=== PATIENT | female | born 1960 | race Two or more races ===

== ENCOUNTER 2022-03-02 13:57 | Inpatient (IN) | payer OTHER, SELFPAY ==
[2022-03-02] MEDS ORDERED: Ondansetron ODT 4 MG TAB PO PRN (15:08)
[2022-03-02] MEDS ORDERED: Morphine 2 MG/ML VIAL SLOW IVP PRN (15:08)
[2022-03-02] MEDS ORDERED: Promethazine HCl 25 MG/ML VIAL IM PRN (15:08)
[2022-03-02] MEDS ORDERED: Dextrose 50% Abboject 50 ML SYRINGE SLOW IVP PRN (15:08)
[2022-03-02] MEDS ORDERED: hydrALAZINE 20 MG/ML VIAL SLOW IVP PRN (15:08)
[2022-03-02] MEDS ORDERED: Dextrose 5% in Water 1,000 ML IV PRN (15:08)
[2022-03-02] MEDS ORDERED: Morphine 4 MG/ML VIAL SLOW IVP PRN (15:08)
[2022-03-02] MEDS ORDERED: Ondansetron PF 4 MG/2 ML Vial IVP PRN (15:08)
[2022-03-02] MEDS ORDERED: Insulin Regular 300 UNITS/3 ML VIAL SC PRN (15:12)
[2022-03-02] MEDS ORDERED: Acetaminophen/Codeine 30-300mg Tablet PO PRN (15:16)
[2022-03-02 16:17] LABS: #Eosinphils 0.1 thou/uL (0.0-0.7); #Monocytes 0.8 thou/uL (0.11-0.59); #Neutrophils 7.6 thou/uL (1.40-6.50); %Basophils 0.2 % (0.0-1.0); %Eosinophils 0.5 % (0.0-10.0); %Lymphocytes 25.8 % (21.0-51.0); %Monocytes 7.2 % (0.0-10.0); %Neutrophils 66.3 % (42.0-75.0); Hemoglobin 10.3 g/dL (12.0-16.0); MDiff Complete? YES; Macrocytosis MODERATE=16-30 cells (100X) (0-5/hpf); Mean Corpuscular HGB CONC 33.4 g/dL (32.0-36.0); Mean Corpuscular Hemoglobin 37.6 pg (27.0-31.0); Mean Platelet Volume 7.8 fL (7.4-10.4); Platelet Count 378 thou/uL (130-400); Platelet Morphology Comment Appears Adequate; Polychromasia SLIGHT = 2-3 cells (100X) (0-2/hpf); RBC Distribution Width 12.5 % (11.5-14.5); Red Blood Cell (RBC) Count 2.72 mill/uL (4.20-5.40); White Blood Cell (WBC) Count 11.5 thou/uL (4.8-10.8)
[2022-03-02 16:31] LABS: ALT (SGPT) 16 U/L (8-55); AST (SGOT) 28 U/L (5-34); Albumin 3.1 g/dL (3.4-4.8); Alkaline Phosphatase 199 U/L (40-110); Anion Gap 16 mmol/L (10-20); BUN (Urea Nitrogen) 15 mg/dL (9.8-20.1); Bilirubin, Total 0.4 mg/dL (0.2-1.2); Calc. Creatinine Clearance 0 mL/min (70-130); Calcium 8.8 mg/dL (7.8-10.44); Carbon Dioxide 21 mmol/L (23-31); Chloride 102 mmol/L (98-107); Estimated GFR 39; Globulin 3.9 g/dL (2.4-3.5); Glucose 125 mg/dL (80-115); Magnesium 1.6 mg/dL (1.6-2.6); Phosphorus 4.1 mg/dL (2.3-4.7); Potassium 4.6 mmol/L (3.5-5.1); Sodium 134 mmol/L (136-145)
[2022-03-02] MEDS: Sodium Chloride 0.9% 1,000 ML IV SCH ×2 (18:12→19:58)
[2022-03-02] MEDS: Acetaminophen/Codeine 30-300mg Tablet PO SCH (18:16)
[2022-03-02] MEDS: Morphine 4 MG/ML VIAL SLOW IVP PRN (19:59)
[2022-03-02 20:10] VITALS: BMI 266229.5
[2022-03-02] MEDS ORDERED: Magnesium 2 GM/50 ML(in water) 2 GM in Premix Bag 1 BAG IVPB SCH (20:30)
[2022-03-02] MEDS ORDERED: Famotidine 20 MG TAB PO SCH (21:00)
[2022-03-03] MEDS: Acetaminophen/Codeine 30-300mg Tablet PO SCH ×4 (00:11→17:57)
[2022-03-03 04:42] LABS: SARS-CoV-2 NAA Rapid Test Not Detected (NotDetected)
[2022-03-03 06:06] LABS: Anion Gap 14 mmol/L (10-20); BUN (Urea Nitrogen) 17 mg/dL (9.8-20.1); Calc. Creatinine Clearance 33 mL/min (70-130); Calcium 8.3 mg/dL (7.8-10.44); Carbon Dioxide 22 mmol/L (23-31); Chloride 101 mmol/L (98-107); Estimated GFR 25; Glucose 136 mg/dL (80-115); Magnesium 2.3 mg/dL (1.6-2.6); Phosphorus 4.4 mg/dL (2.3-4.7); Potassium 4.2 mmol/L (3.5-5.1); Sodium 133 mmol/L (136-145)
[2022-03-03] MEDS ORDERED: fentaNYL Citrate/PF 100 MCG/2 ML SYRINGE ONE (06:34)
[2022-03-03] MEDS ORDERED: CEFAZOLIN 2 GM in Sodium Chloride 0.9% 100 ML IVPB SCH (07:15)
[2022-03-03] MEDS: levETIRAcetam 500 MG TAB PO SCH ×2 (07:17→20:56)
[2022-03-03] MEDS ORDERED: Sodium Chloride 0.9% 100 ML ONE (07:27)
[2022-03-03] MEDS ORDERED: CEFAZOLIN 2 GM VIAL ONE (07:27)
[2022-03-03] MEDS ORDERED: Midazolam HCl 2 mg/2 ml Vial ONE (07:28)
[2022-03-03] MEDS ORDERED: Lidocaine 2% Jelly 5 ML TUBE ONE (07:43)
[2022-03-03] MEDS ORDERED: Rocuronium Bromide 10 MG/ML (10ML VIAL) ONE (07:45)
[2022-03-03] MEDS ORDERED: PROPOFOL 200 MG/20 ML VIAL ONE (07:45)
[2022-03-03] MEDS ORDERED: Dexamethasone 20 MG/5 ML VIAL ONE (07:45)
[2022-03-03] MEDS ORDERED: Phenylephrine 10 MG/ML VIAL ONE (07:45)
[2022-03-03] MEDS ORDERED: Ondansetron PF 4 MG/2 ML Vial ONE (07:45)
[2022-03-03] MEDS ORDERED: Lidocaine 1% MPF 2 ML VIAL ONE (07:45)
[2022-03-03] MEDS ORDERED: Ondansetron HCl/PF 4 MG/2 ML Vial IVP PRN (08:20)
[2022-03-03] MEDS ORDERED: Promethazine HCl 25 MG/ML VIAL IM PRN (08:20)
[2022-03-03] MEDS ORDERED: Promethazine HCl 25 MG/ML VIAL IVPB PRN (08:20)
[2022-03-03] MEDS ORDERED: SUGAMMADEX SODIUM 200 MG/2 ML VIAL ONE (08:42)
[2022-03-03] MEDS: Sodium Chloride 0.9% 1,000 ML IV SCH ×2 (08:59→10:01)
[2022-03-03] MEDS: Sodium Bicarbonate Tab 325 MG TAB PO SCH ×2 (10:01→20:56)
[2022-03-03] MEDS: Acetaminophen/Codeine 30-300mg Tablet PO PRN ×2 (10:02→20:56)
[2022-03-03] MEDS: Citalopram 20 MG TAB PO SCH (10:02)
[2022-03-03] MEDS: Insulin Regular 300 UNITS/3 ML VIAL SC PRN ×2 (11:34→16:10)
[2022-03-03] MEDS: Morphine 4 MG/ML VIAL SLOW IVP PRN ×2 (13:38→22:45)
[2022-03-03] MEDS: Cyclobenzaprine 10 MG TAB PO PRN (16:01)
[2022-03-03] MEDS: CEFAZOLIN 2 GM in Sodium Chloride 0.9% 100 ML IVPB SCH (16:02)
[2022-03-03] MEDS: Montelukast Sodium 10 mg Tablet PO SCH (20:57)
[2022-03-04] MEDS: Acetaminophen/Codeine 30-300mg Tablet PO SCH ×5 (01:03→23:46)
[2022-03-04] MEDS: CEFAZOLIN 2 GM in Sodium Chloride 0.9% 100 ML IVPB SCH (01:05)
[2022-03-04 06:22] LABS: #Lymphocytes 2.8 thou/uL (1.20-3.40); #Monocytes 1.2 thou/uL (0.11-0.59); #Neutrophils 9.2 thou/uL (1.40-6.50); %Basophils 0.2 % (0.0-1.0); %Lymphocytes 21.1 % (21.0-51.0); %Monocytes 9.3 % (0.0-10.0); %Neutrophils 69.4 % (42.0-75.0); Hemoglobin 7.9 g/dL (12.0-16.0); Mean Corpuscular HGB CONC 32.9 g/dL (32.0-36.0); Mean Corpuscular Hemoglobin 37.5 pg (27.0-31.0); Mean Platelet Volume 8.4 fL (7.4-10.4); Platelet Count 280 thou/uL (130-400); RBC Distribution Width 12.6 % (11.5-14.5); White Blood Cell (WBC) Count 13.2 thou/uL (4.8-10.8)
[2022-03-04] MEDS: Insulin Regular 300 UNITS/3 ML VIAL SC PRN ×3 (06:33→17:10)
[2022-03-04 07:02] LABS: Anion Gap 14 mmol/L (10-20); BUN (Urea Nitrogen) 18 mg/dL (9.8-20.1); Calc. Creatinine Clearance 41 mL/min (70-130); Calcium 8.2 mg/dL (7.8-10.44); Carbon Dioxide 20 mmol/L (23-31); Chloride 105 mmol/L (98-107); Estimated GFR 33; Glucose 224 mg/dL (80-115); Magnesium 2.1 mg/dL (1.6-2.6); Phosphorus 3.2 mg/dL (2.3-4.7); Potassium 5.1 mmol/L (3.5-5.1); Sodium 134 mmol/L (136-145)
[2022-03-04] MEDS: Sodium Bicarbonate Tab 325 MG TAB PO SCH ×2 (09:06→21:54)
[2022-03-04] MEDS: levETIRAcetam 500 MG TAB PO SCH ×2 (09:06→21:54)
[2022-03-04] MEDS: Citalopram 20 MG TAB PO SCH (09:06)
[2022-03-04] MEDS: Morphine 4 MG/ML VIAL SLOW IVP PRN (10:45)
[2022-03-04] MEDS ORDERED: glipiZIDE 5 MG TAB PO SCH (16:30)
[2022-03-04] MEDS ORDERED: Atorvastatin Calcium 40 MG TAB PO SCH (21:00)
[2022-03-04] MEDS ORDERED: Montelukast Sodium 10 mg Tablet PO SCH (21:00)
[2022-03-04] MEDS: Aspirin 81 mg Enteric Coated Tablet PO SCH (21:54)
[2022-03-04] MEDS: glipiZIDE 5 MG TAB PO SCH (21:55)
[2022-03-04] MEDS: Montelukast Sodium 10 mg Tablet PO SCH (21:58)
[2022-03-05] MEDS: Acetaminophen/Codeine 30-300mg Tablet PO SCH ×3 (05:40→17:14)
[2022-03-05 06:08] LABS: #Eosinphils 0.2 thou/uL (0.0-0.7); #Lymphocytes 2.3 thou/uL (1.20-3.40); #Monocytes 0.9 thou/uL (0.11-0.59); #Neutrophils 4.8 thou/uL (1.40-6.50); %Basophils 0.4 % (0.0-1.0); %Eosinophils 2.2 % (0.0-10.0); %Lymphocytes 27.8 % (21.0-51.0); %Monocytes 10.8 % (0.0-10.0); %Neutrophils 58.8 % (42.0-75.0); Hemoglobin 9.8 g/dL (12.0-16.0); Mean Corpuscular HGB CONC 33.5 g/dL (32.0-36.0); Mean Corpuscular Hemoglobin 36.5 pg (27.0-31.0); Platelet Count 277 thou/uL (130-400); RBC Distribution Width 14.8 % (11.5-14.5); White Blood Cell (WBC) Count 8.2 thou/uL (4.8-10.8)
[2022-03-05 06:31] LABS: Anion Gap 15 mmol/L (10-20); BUN (Urea Nitrogen) 22 mg/dL (9.8-20.1); Calc. Creatinine Clearance 54 mL/min (70-130); Calcium 8.5 mg/dL (7.8-10.44); Carbon Dioxide 22 mmol/L (23-31); Chloride 103 mmol/L (98-107); Estimated GFR 47; Glucose 124 mg/dL (80-115); Magnesium 1.8 mg/dL (1.6-2.6); Phosphorus 2.4 mg/dL (2.3-4.7); Potassium 4.2 mmol/L (3.5-5.1); Sodium 136 mmol/L (136-145)
[2022-03-05] MEDS: Aspirin 81 mg Enteric Coated Tablet PO SCH ×3 (08:34→20:27)
[2022-03-05] MEDS: Sodium Bicarbonate Tab 325 MG TAB PO SCH ×2 (08:34→20:27)
[2022-03-05] MEDS: glipiZIDE 5 MG TAB PO SCH ×2 (08:34→20:28)
[2022-03-05] MEDS: levETIRAcetam 500 MG TAB PO SCH ×2 (08:34→20:26)
[2022-03-05] MEDS: Lisinopril 10 MG TAB PO SCH (08:35)
[2022-03-05] MEDS: Citalopram 20 MG TAB PO SCH (08:35)
[2022-03-05] MEDS: Atorvastatin Calcium 40 MG TAB PO SCH (08:38)
[2022-03-05] MEDS: Alogliptin 25 MG TAB PO SCH (08:38)
[2022-03-05] MEDS ORDERED: Aspirin 81 mg Enteric Coated Tablet PO SCH (09:00)
[2022-03-05] MEDS ORDERED: Lisinopril 10 MG TAB PO SCH ×2 (09:00)
[2022-03-05] MEDS ORDERED: BIKTARVY FS SCH (09:00)
[2022-03-05] MEDS: Cyclobenzaprine 10 MG TAB PO PRN (14:19)
[2022-03-05] MEDS: Montelukast Sodium 10 mg Tablet PO SCH (20:27)
[2022-03-06] MEDS: Acetaminophen/Codeine 30-300mg Tablet PO SCH ×5 (00:24→23:11)
[2022-03-06] MEDS: Sodium Bicarbonate Tab 325 MG TAB PO SCH ×2 (08:57→21:21)
[2022-03-06] MEDS: levETIRAcetam 500 MG TAB PO SCH ×2 (08:58→21:21)
[2022-03-06] MEDS: Citalopram 20 MG TAB PO SCH (08:58)
[2022-03-06] MEDS: Alogliptin 25 MG TAB PO SCH (08:58)
[2022-03-06] MEDS: Lisinopril 10 MG TAB PO SCH (08:59)
[2022-03-06] MEDS: glipiZIDE 5 MG TAB PO SCH ×2 (08:59→21:22)
[2022-03-06] MEDS: Aspirin 81 mg Enteric Coated Tablet PO SCH ×2 (09:00→21:21)
[2022-03-06] MEDS: Atorvastatin Calcium 40 MG TAB PO SCH (09:00)
[2022-03-06 09:36] LABS: Anion Gap 17 mmol/L (10-20); BUN (Urea Nitrogen) 21 mg/dL (9.8-20.1); Calc. Creatinine Clearance 67 mL/min (70-130); Calcium 9.2 mg/dL (7.8-10.44); Carbon Dioxide 17 mmol/L (23-31); Chloride 105 mmol/L (98-107); Estimated GFR 60; Glucose 136 mg/dL (80-115); Magnesium 1.6 mg/dL (1.6-2.6); Phosphorus 2.4 mg/dL (2.3-4.7); Potassium 3.9 mmol/L (3.5-5.1); Sodium 135 mmol/L (136-145)
[2022-03-06 09:48] LABS: #Basophils 0.1 thou/uL (0.0-0.2); #Eosinphils 0.3 thou/uL (0.0-0.7); #Monocytes 1.6 thou/uL (0.11-0.59); #Neutrophils 8.6 thou/uL (1.40-6.50); %Basophils 0.4 % (0.0-1.0); %Eosinophils 2.1 % (0.0-10.0); %Monocytes 11.5 % (0.0-10.0); Hemoglobin 11.1 g/dL (12.0-16.0); Mean Corpuscular HGB CONC 32.3 g/dL (32.0-36.0); Mean Corpuscular Hemoglobin 34.4 pg (27.0-31.0); Mean Platelet Volume 8.6 fL (7.4-10.4); Platelet Count 341 thou/uL (130-400); RBC Distribution Width 13.9 % (11.5-14.5); Red Blood Cell (RBC) Count 3.22 mill/uL (4.20-5.40); White Blood Cell (WBC) Count 13.5 thou/uL (4.8-10.8)
[2022-03-06] MEDS ORDERED: Ibuprofen 200 MG TAB PO PRN (11:03)
[2022-03-06] MEDS: Cyclobenzaprine 10 MG TAB PO PRN (21:18)
[2022-03-06] MEDS: Montelukast Sodium 10 mg Tablet PO SCH (21:22)
[2022-03-07] MEDS: Acetaminophen/Codeine 30-300mg Tablet PO SCH ×4 (05:02→23:34)
[2022-03-07] MEDS: Lisinopril 10 MG TAB PO SCH (09:00)
[2022-03-07] MEDS: levETIRAcetam 500 MG TAB PO SCH ×2 (09:00→19:48)
[2022-03-07] MEDS ORDERED: Famotidine 20 MG TAB PO SCH (09:00)
[2022-03-07] MEDS: Alogliptin 25 MG TAB PO SCH (09:01)
[2022-03-07] MEDS: Aspirin 81 mg Enteric Coated Tablet PO SCH ×2 (09:01→19:47)
[2022-03-07] MEDS: glipiZIDE 5 MG TAB PO SCH ×2 (09:01→19:48)
[2022-03-07] MEDS: Sodium Bicarbonate Tab 325 MG TAB PO SCH ×2 (09:01→19:47)
[2022-03-07] MEDS: Citalopram 20 MG TAB PO SCH (09:01)
[2022-03-07] MEDS: Atorvastatin Calcium 40 MG TAB PO SCH (09:01)
[2022-03-07] MEDS ORDERED: Ketorolac Tromethamine 30 MG/ML VIAL IVP STA (11:10)
[2022-03-07] MEDS: Cyclobenzaprine 10 MG TAB PO PRN (19:47)
[2022-03-07] MEDS: Montelukast Sodium 10 mg Tablet PO SCH (19:48)
[2022-03-08] MEDS: Acetaminophen/Codeine 30-300mg Tablet PO SCH ×4 (00:04→18:47)
[2022-03-08] MEDS: Atorvastatin Calcium 40 MG TAB PO SCH (09:03)
[2022-03-08] MEDS: Citalopram 20 MG TAB PO SCH (09:03)
[2022-03-08] MEDS: Alogliptin 25 MG TAB PO SCH (09:03)
[2022-03-08] MEDS: Sodium Bicarbonate Tab 325 MG TAB PO SCH ×2 (09:03→19:40)
[2022-03-08] MEDS: levETIRAcetam 500 MG TAB PO SCH ×2 (09:03→19:40)
[2022-03-08] MEDS: Aspirin 81 mg Enteric Coated Tablet PO SCH ×2 (09:04→19:40)
[2022-03-08] MEDS: glipiZIDE 5 MG TAB PO SCH ×2 (09:11→19:40)
[2022-03-08] MEDS ORDERED: Loperamide HCl 2 MG CAP PO PRN (09:29)
[2022-03-08 16:10] VITALS: BP 94/61; TEMP 97.6
[2022-03-08] MEDS: Montelukast Sodium 10 mg Tablet PO SCH (19:40)
== END 2022-03-08 20:58 | DRG 481 ==
LOC: SURG B 15:02
PROVIDERS: ADMIT Surgery; ATTEND Surgery
PROC: 0QS704Z Reposition Left Upper Femur with Internal Fixation Device, Open Approach (ICD-10-PCS; principal; 2022-03-03)
PROC: 30233N1 Transfusion of Nonautologous Red Blood Cells into Peripheral Vein, Percutaneous Approach (ICD-10-PCS; 2022-03-04)
DX: S72.142A Displaced intertrochanteric fracture of left femur, initial encounter for closed fracture (principal); D62 Acute posthemorrhagic anemia; E87.1 Hypo-osmolality and hyponatremia; N18.4 Chronic kidney disease, stage 4 (severe); N17.9 Acute kidney failure, unspecified; W19.XXXA Unspecified fall, initial encounter; I12.9 Hypertensive chronic kidney disease with stage 1 through stage 4 chronic kidney disease, or unspecified chronic kidney disease; E11.22 Type 2 diabetes mellitus with diabetic chronic kidney disease; K21.9 Gastro-esophageal reflux disease without esophagitis; Z21 Asymptomatic human immunodeficiency virus [HIV] infection status; R19.7 Diarrhea, unspecified; Z20.822 Contact with and (suspected) exposure to COVID-19; Y92.009 Unspecified place in unspecified non-institutional (private) residence as the place of occurrence of the external cause; Z90.710 Acquired absence of both cervix and uterus
CPT/HCPCS: 36415; 36416; 36430; 71045; 76000; 80048; 80053; 83735; 84100; 85025; 86850; 86900; 86901; 87324; 87449; 93306; 93880; C1713; J0690; J1100; J1815; J1885; J2250; J2270; J2370; J2405; J2704; J3475; J3490; J7050; P9016; U0002